=== PATIENT | male | born 1960 | race African-American/Black ===

== ENCOUNTER 2020-05-09 02:16 | Emergency (ER) | payer OTHER ==
[~2020-05-09] VITALS: Ht 162.6 cm; Wt 47.6 kg
[2020-05-09] MEDS ORDERED: PRINIVIL10 MG PO (04:07)
[2020-05-09 04:35] VITALS: BP 156/84
== END 2020-05-09 04:35 | disposition home or self-care (01) ==
LOC: M.ERS 02:16
DX: I10 Essential (primary) hypertension (principal); H10.9 Unspecified conjunctivitis